=== PATIENT | female | born 1965 | race Caucasian/White ===

== ENCOUNTER 2018-11-03 15:57 | Emergency (ER) | payer OTHER ==
[2018-11-03 16:12] VITALS: BP 167/94; PULSE 102; TEMP 98.3; BMI 27.3
--- NOTE | 2018-11-03 16:26 | PDOC ---
Rapid Medical Evaluation Chief Complaint: Pain, Acute Time Seen by Provider: 11/03/18 16:11 Medical Evaluation: Allergies Allergy/AdvReac Type Severity Reaction Status Date / Time No Known Allergies Allergy Verified 11/03/18 16:12 Vital Signs Temp Pulse Resp BP Pulse Ox 98.3 F 102 H 18 167/94 99 11/03/18 16:08 11/03/18 16:08 11/03/18 16:08 11/03/18 16:08 11/03/18 16:08 11/03/18 16:23 I have performed a brief in-person evaluation of this patient. The patient presents with a chief complaint of: 2 months h/o left shoulder pain which is worse when she lifts shoulder or taking off her clothes. Denies trauma or injury to shoulder Pertinent physical exam findings: mild tenderness to AC joint, lateral deltoid and posterior left shoulder . FROM of shoulder. 5/5 muscle strength to LUE I have ordered the following: x- ray of left shoulder The patient will proceed to the ED for further evaluation Discharge Disposition - Diagnosis Left shoulder pain Qualifiers: Chronicity: acute Qualified Code(s): M25.512 - Pain in left shoulder - Discharge Dispostion Condition at time of disposition: Stable - Referrals - Patient Instructions - Post Discharge Activity
--- NOTE | 2018-11-03 16:40 | PDOC ---
History of Present Illness - General Chief Complaint: Pain, Acute Stated Complaint: SHOULDER PAIN Time Seen by Provider: 11/03/18 16:11 - History of Present Illness Initial Comments: 11/03/18 16:37 53-year-old female presents for evaluation of 2 months atraumatic left shoulder pain without systemic symptoms. Past History - Past Medical History Allergies/Adverse Reactions: Allergies Allergy/AdvReac Type Severity Reaction Status Date / Time No Known Allergies Allergy Verified 11/03/18 16:12 Home Medications: Ambulatory Orders Calcium (Oyster Shell) [Os-Luis Fernando 500Mg -] 500 mg PO DAILY 11/03/18 Cholecalciferol (Vitamin D3) [Vitamin D3 -] 2,000 unit PO DAILY 11/03/18 Levothyroxine [Synthroid -] mcg PO DAILY 11/03/18 COPD: No Thyroid Disease: Yes (hypo) - Suicide/Smoking/Psychosocial Hx Smoking History: Never smoked Review of Systems - Review of Systems Musculoskeletal: Yes: Joint Pain *Physical Exam - Vital Signs Last Vital Signs Temp Pulse Resp BP Pulse Ox 98.3 F 102 H 18 167/94 99 11/03/18 16:08 11/03/18 16:08 11/03/18 16:08 11/03/18 16:08 11/03/18 16:08 - Physical Exam Comments: 11/03/18 16:37 Full range of motion of the left shoulder. 3 out of 5 she was supraspinatus isolation. Positive impingement maneuvers no gross sensorimotor deficits neurovascularly intact Moderate Sedation - Procedure Monitoring Vital Signs: Procedure Monitoring Vital Signs Temperature 98.3 F 11/03/18 16:08 Pulse Rate 102 H 11/03/18 16:08 Respiratory Rate 18 11/03/18 16:08 Blood Pressure 167/94 11/03/18 16:08 O2 Sat by Pulse Oximetry (%) 99 11/03/18 16:08 Medical Decision Making - Medical Decision Making 11/03/18 16:39 Left shoulder most likely rotator cuff syndrome or impingement syndrome most likely degenerative tear. Advised on anti-inflammatories orthopedic surgery follow-up 11/03/18 16:40 No fracture trauma or destructive process on radiograph today. *DC/Admit/Observation/Transfer Diagnosis at time of Disposition: Left shoulder pain Qualifiers: Chronicity: acute Qualified Code(s): M25.512 - Pain in left shoulder - Discharge Dispostion Disposition: HOME Condition at time of disposition: Stable Decision to Admit order: No - Referrals Referrals: Ramez Luque DO [Staff Physician] - - Patient Instructions Printed Discharge Instructions: DI for Shoulder Pain Additional Instructions: Tylenol as directed for pain. Follow-up with orthopedic surgery in 1-2 days for further evaluation and treatment options and return to the emergency room for worsening symptoms. - Post Discharge Activity
== END 2018-11-03 17:13 | disposition home or self-care (01) ==
LOC: JERFT 15:57
DX: M25.512 Pain in left shoulder (principal)
CPT/HCPCS: 73030-TC-LT-FY; 99281-25